=== PATIENT | female | born 1985 | race Two or more races ===

== ENCOUNTER 2021-05-17 16:15 | Emergency (ER) | payer OTHER ==
[~2021-05-17] VITALS: Ht 165.1 cm; Wt 70.3 kg
[2021-05-17] MEDS ORDERED: PROMETRIUM200 MG (16:29)
[2021-05-17] MEDS ORDERED: FE C PLUS TABL1 EACH (16:30)
[2021-05-17] MEDS ORDERED: IBU800 MG PO (21:01)
== END 2021-05-17 21:41 | disposition home or self-care (01) ==
LOC: ER 16:15
DX: S90.01XA Contusion of right ankle, initial encounter (principal); S90.31XA Contusion of right foot, initial encounter; W18.49XA Other slipping, tripping and stumbling without falling, initial encounter; Y92.019 Unspecified place in single-family (private) house as the place of occurrence of the external cause